=== PATIENT | female | born 1950 | race Caucasian/White ===

== ENCOUNTER 2020-03-28 17:28 | Emergency (ER) | payer OTHER ==
[~2020-03-28] VITALS: Ht 165.1 cm; Wt 68.0 kg
[2020-03-28 17:31] VITALS: Ht 165.1 cm; Wt 68.0 kg
[2020-03-28 18:19] LABS: PLATELET COUNT 146 x10^3mcL (130-400); RED CELL DISTRIBUTION WIDTH 13.1 % (11.5-14.5)
[2020-03-28 18:32] VITALS: BP 79/30
[2020-03-28 18:47] LABS: BILIRUBIN TOTAL 4.2 mg/dL (0.20-1.00); CALCIUM 8.8 mg/dL (8.5-10.1); CARBON DIOXIDE 19.1 mmol/L (21-32); CREATININE SERUM 2.2 mg/dL (0.6-1.0); T4(THYROXINE) 7.9 ug/dL (4.7-13.3); TOTAL PROTEIN, SERUM 6.7 g/dL (6.4-8.2)
[2020-03-28 18:58] LABS: ALBUMIN 2.8 g/dL (3.4-5.0)
[2020-03-28 19:03] LABS: BAND NEUTROPHIL 9 % (0-10); BASOPHIL 0 % (0-2); MONOCYTE 1 % (0-7); PLATELET MORPHOLOGY PLT CLUMPS SEEN; SEGMENTED NEUTROPHILS 72 % (37-75); rbc morphology (normal/abnorm) NORMAL (NORMAL)
[2020-03-28 19:19] LABS: CK-MB < 0.5 ng/mL (0-3.6); CREATINE KINASE 137 U/L (26-192)
== END 2020-03-28 22:03 | disposition expired ==
LOC: ED 17:28
PROVIDERS: Emergency Medicine
DX: I46.9 Cardiac arrest, cause unspecified (principal); I21.3 ST elevation (STEMI) myocardial infarction of unspecified site
CPT/HCPCS: 31500; 36600; 83880; J2310; J3490; Q0092